=== PATIENT | female | born 1945 | race Caucasian/White ===

== ENCOUNTER → 2021-10-23 | Outpatient (CLI) | payer MEDICARE, BC ==
[~2021-10-23] MED LIST: NORCO 10-325 T1 EACH PO
== END ==
LOC: M.WC 07:26
PROVIDERS: ATTEND Surgery
DX: E11.622 Type 2 diabetes mellitus with other skin ulcer (principal); L89.153 Pressure ulcer of sacral region, stage 3; L98.491 Non-pressure chronic ulcer of skin of other sites limited to breakdown of skin; E11.621 Type 2 diabetes mellitus with foot ulcer; L89.892 Pressure ulcer of other site, stage 2; L97.411 Non-pressure chronic ulcer of right heel and midfoot limited to breakdown of skin; E11.40 Type 2 diabetes mellitus with diabetic neuropathy, unspecified; I25.10 Atherosclerotic heart disease of native coronary artery without angina pectoris; I25.2 Old myocardial infarction; I50.9 Heart failure, unspecified; F03.90 Unspecified dementia, unspecified severity, without behavioral disturbance, psychotic disturbance, mood disturbance, and anxiety; F41.9 Anxiety disorder, unspecified; Z95.0 Presence of cardiac pacemaker; Z95.5 Presence of coronary angioplasty implant and graft; Z86.73 Personal history of transient ischemic attack (TIA), and cerebral infarction without residual deficits

== ENCOUNTER → 2021-11-03 | Outpatient (CLI) | payer MEDICARE, BC ==
[~2021-11-03] MED LIST changes: +BASAGLAR K100 UNIT/1 SUBQ; +CARBIDOPA-LEVO1 EAC2 PO; +GLUCOPHAGE XR750 MG PO; +NEURONTIN100 MG PO; +ONDANSETRON HCL4 M2 PO; +PLAVIX 75 MG TA75 MG PO; +PRAMIPEXOLE ER1.5 MG PO; +PROTONIX40 M2 PO; +ROSUVASTATIN CA10 MG PO; +SEROQUEL 25 MG25 MG PO; +SERTRALINE HCL25 M1 PO; +TOPROL XL100 MG PO; +TORSEMIDE10 MG PO; +TRAMADOL 50 MG50 MG PO; +VITAMIN B-121000 MC2 SUBLING; +VITAMIN D21250 MCG PO; +XARELTO15 MG PO
== END ==
LOC: M.LAB 16:11
PROVIDERS: ATTEND Surgery
DX: Z01.812 Encounter for preprocedural laboratory examination (principal); Z20.822 Contact with and (suspected) exposure to COVID-19